=== PATIENT | female | born 1980 | race Caucasian/White ===

== ENCOUNTER 2016-07-28 05:15 | Day surgery (SDC) | payer OTHER ==
[2016-07-27 11:28] VITALS: BMI 33.5
[2016-07-28] MEDS ORDERED: ceFAZolin SODIUM 1 GM VIAL ONE (07:48)
[2016-07-28] MEDS ORDERED: SUCCINYLCHOLINE CHLORIDE 200 MG/10 ML VIAL ONE (08:59)
[2016-07-28] MEDS ORDERED: LIDOCAINE HCL/PF 2% SDV 5ML VIAL ONE (08:59)
[2016-07-28] MEDS ORDERED: ROCURONIUM BROMIDE 50 MG/5 ML VIAL ONE ×2 (08:59→11:09)
[2016-07-28] MEDS ORDERED: PROPOFOL 20 ML ONE (08:59)
--- NOTE | 2016-07-28 09:26 | HP ---
History & Physical Update - Physical Physical: No Change - Assessment Assessment: No Change - Plan Currently as noted:: Have discussed with Tracey possible BSO if endometriosis severe.
[2016-07-28] MEDS ORDERED: ceFAZolin 2 GRAM PREMIX BAG IVPB ONE (09:30)
[2016-07-28] MEDS ORDERED: MIDAZOLAM HCL 2 MG/2 ML SINGLE DOSE VIAL ONE (09:53)
[2016-07-28] MEDS ORDERED: DESFLURANE GAS 240 ML BOTTLE IH ONE (09:54)
[2016-07-28] MEDS ORDERED: ceFAZolin SODIUM 1 GM VIAL IVPB ONE (10:10)
[2016-07-28] MEDS ORDERED: DEXAMETHASONE SOD PHOSPHATE 4 MG/1 ML VIAL ONE ×2 (10:15→12:25)
[2016-07-28] MEDS ORDERED: LIDOCAINE 1%/EPI 1:100000 (50 ML MULTI DOSE VIAL) INF ONE (10:20)
[2016-07-28] MEDS ORDERED: METHYLENE BLUE 1% 10 MG/1 ML VIAL ONE (11:47)
[2016-07-28] MEDS ORDERED: HYDROmorphone HCL/PF 1 MG/ML VIAL (FOR PYXIS CHARGING ONLY) ONE (11:58)
[2016-07-28] MEDS ORDERED: NEOSTIGMINE METHYLSULFATE 0.5 MG/ML - 10 ML MDV ONE (12:26)
[2016-07-28] MEDS ORDERED: GLYCOPYRROLATE 0.2 MG/1 ML VIAL ONE (12:27)
[2016-07-28] MEDS ORDERED: METOCLOPRAMIDE HCL INJECTION 10 MG/2 ML VIAL IVPB PRN (13:51)
[2016-07-28] MEDS ORDERED: ONDANSETRON 4 MG/2 ML VIAL IVPB PRN (13:51)
[2016-07-28] MEDS ORDERED: HYDROmorphone HCL CARPU-JECT 1 MG/1 ML DISP.SYRIN IVPUSH PRN ×3 (13:51→16:58)
[2016-07-28] MEDS ORDERED: ACETAMINOPHEN 325 MG TABLET (FP) PO PRN (13:51)
[2016-07-28] MEDS ORDERED: KETOROLAC TROMETHAMINE 30 MG/1 ML VIAL IVPUSH SCH (14:00)
[2016-07-28] MEDS ORDERED: HYDROmorphone HCL CARPU-JECT 2 MG/1 ML DISP.SYRIN ONE (14:04)
--- NOTE | 2016-07-28 14:08 | OP ---
Operative Note - Note: Operative Date: 07/28/16 Pre-Operative Diagnosis: Bilateral endometriomas. Chronic pelvic pain. Menorrhagia Operation: Robotic total hysterectomy, bilateral salpingoophorectomy, endometrioma excision, enterolysis, cystoscopy Findings: 8 cm right ovarian cyst with chocolate fluid, thick wall, left ovarian 5 cm cyst with chocolate fluid, no normal ovaries or tubes seen. Uterus 10 week size c/w adenomyosis, rectum densely adherent to posterior uterus. Normal appendix and upper abdomen Implants: none Post-Operative Diagnosis: Same as Pre-op Surgeon: Sujey Young Divisional Merchandising Manager: Alvin Guerra Anesthesia: General, Local Specimens Removed: Uterus, cervix, bilateral tubes and ovaries Estimated Blood Loss (mls): 200 Drains & Tubes with Location: none Operative Report Dictated: Yes
[2016-07-28] MEDS: KETOROLAC TROMETHAMINE 30 MG/1 ML VIAL IVPB SCH ×2 (16:23→22:29)
[2016-07-28] MEDS ORDERED: HYDROmorphone HCL CARPU-JECT 1 MG/1 ML DISP.SYRIN IVPB PRN (20:29)
[2016-07-28] MEDS: LORazepam 0.5 MG TABLET PO PRN (20:37)
[2016-07-28] MEDS ORDERED: HYDROmorphone HCL CARPU-JECT 1 MG/1 ML DISP.SYRIN IVPB ONE (23:00)
[2016-07-28] MEDS: LACTATED RINGERS SOLUTION 1,000 ML IV SCH (23:55)
[2016-07-29] MEDS: HYDROmorphone HCL CARPU-JECT 2 MG/1 ML DISP.SYRIN IVPB PRN ×2 (01:55→06:02)
[2016-07-29] MEDS: LORazepam 0.5 MG TABLET PO PRN ×2 (01:58→15:29)
[2016-07-29] MEDS: KETOROLAC TROMETHAMINE 30 MG/1 ML VIAL IVPB SCH ×3 (04:36→17:39)
[2016-07-29 08:19] LABS: MCHC 34.1 g/dl (32.0-36.0); MEAN CELL VOLUME 82.1 fl (80-96); MEAN PLT VOLUME 9.1 fl (7.5-11.1); PLATELET COUNT 210 K/MM3 (134-434); WHITE BLOOD COUNT 6.6 K/mm3 (4.0-10.0)
[2016-07-29] MEDS: LACTATED RINGERS SOLUTION 1,000 ML IV SCH (08:23)
[2016-07-29 09:09] LABS: COCKROFT - GAULT 177.514; CREATININE 0.6 mg/dL (0.55-1.02)
--- NOTE | 2016-07-29 09:09 | PN ---
Progress Note (short form) - Note Progress Note: pod 1 doing well, has nausea, CBC, BMP 07/29/16 07:30 Last Vital Signs Temp Pulse Resp BP Pulse Ox 98 F 79 20 109/61 100 07/29/16 08:06 07/29/16 08:06 07/29/16 08:06 07/29/16 08:06 07/28/16 21:00 abdomen soft, no distension, no cva BS hypoactive, but present incisions dry, clean no vaginal bleeding, no calf tenderness plan ambulate , advance diet, if tolerate diet,d/c home with instruction
[2016-07-29] MEDS ORDERED: oxyCODONE HCL 5 MG TABLET PO PRN (10:05)
[2016-07-29 13:24] VITALS: BP 113/62; PULSE 85; TEMP 98.2
--- NOTE | 2016-07-30 12:23 | PATH ---
Surgical Pathology Report Patient Name: KENDRA VALADEZ [facility]. Rec. #: [id number] /Age/Gender: 1980 (Age: 36) / F Account: [id number] Location: AMBULATORY SURG Taken: 07/28/2016 Received: 07/28/2016 Reported: 07/30/2016 Physicians: Sujey Young MD Specimen(s) Received UTERUS, CERVIX, WITH BILATERAL FALLOPIAN TUBES AND OVARIES Clinical History Ovarian cysts Final Diagnosis UTERUS, CERVIX, BILATERAL FALLOPIAN TUBES AND OVARIES, ROBOTIC LAPAROSCOPIC TOTAL HYSTERECTOMY, BILATERAL SALPINGO-OOPHORECTOMY: CERVIX: CHRONIC CERVICITIS. ENDOMETRIUM: SECRETORY. MYOMETRIUM: LEIOMYOMATA (LARGEST 0.7 CM). UTERINE SEROSA: FIBROVASCULAR ADHESIONS. LEFT FALLOPIAN TUBE: ENDOMETRIOSIS, CHRONIC SALPINGITIS, DENSE FIBROVASCULAR AND FIBRINOHEMORRHAGIC TUBO-OVARIAN ADHESIONS. LEFT OVARY: ENDOMETRIOSIS, HEMORRHAGIC CORPUS LUTEUM, CYSTIC FOLLICLES, DENSE TUBO-OVARIAN ADHESIONS. RIGHT FALLOPIAN TUBE: ENDOMETRIOSIS, CHRONIC SALPINGITIS, DENSE FIBROVASCULAR AND FIBRINOHEMORRHAGIC TUBO-OVARIAN ADHESIONS. RIGHT OVARY: ENDOMETRIOMA/ENDOMETRIOTIC CYST, DENSE TUBO-OVARIAN ADHESIONS. Electronically Signed Maciel Paul M.D. Gross Description Received in formalin labeled "uterus, cervix, bilateral fallopian tubes and ovaries" is a 118 g uterus with an attached cervix and bilateral attached fallopian tubes and ovaries. The specimen measures 9 cm from superior to inferior, 5.5 cm from left to right and 5.0 cm from anterior to posterior. The serosa is denton-brown with adhesions. The attached cervix measures 3 cm in length and averages 2.8 cm in diameter. The ectocervix is denton, smooth and glistening. The endocervix is unremarkable. The endometrial cavity measures 4 cm in length and averages 3 cm from cornu to cornu. The endometrium is hyperemic and lush, measuring up to 0.4 cm in thickness. There are 2 small intramural nodules identified measuring 0.4 and 0.7 cm in greatest dimension. The remaining myometrium is denton-pink and averages 2 cm in thickness. The left fimbriated fallopian tube measures 4.3 cm in length. The outer surface is denton-quiros with dense tubo-ovarian adhesions. The attached left ovary measures 7.0 x 4.3 x 2.5 cm. The outer surface is brown with adhesions and multifocal defects. Sectioning reveals denton-brown, hemorrhagic, cystic parenchyma. The right adnexa display a 5.8 x 5.0 x 2.5 cm hemorrhagic mass, consistent with an ovary and fallopian tube. The specimen displays dense tubo-ovarian adhesions. No definitive fimbria is identified. A fallopian tube lumen is identified. The ovary appears hemorrhagic with multifocal defects. Sectioning reveals denton-brown, hemorrhagic cystic parenchyma. Computer Systems Auditor sections are submitted in 19 cassettes as follows: 1-anterior cervix; 2-posterior cervix; 8-6-cqyavekq endomyometrium; 4-1-xezkjyhyt endomyometrium; 7-intramural nodules; 8-left fallopian tube fimbria; 9-cross sections of left fallopian tube; 10-13-left ovary; 83-vjpzk-gghwecog of probable right fallopian tube; 15-19-right ovary. 07/29/2016 [facility]07/29/2016
--- NOTE | 2016-07-30 12:45 | PATH ---
Cytology Non-Gynecological Report Patient Name: KENDRA VALADEZ [facility]. Rec. #: [id number] /Age/Gender: 1980 (Age: 36) / F Account: [id number] Location: AMBULATORY SURG Taken: 07/28/2016 Received: 07/28/2016 Reported: 07/30/2016 Physicians: Sujey Young MD Specimen(s) Received PELVIC WASHINGS Clinical History Ovarian cysts Final Diagnosis PELVIC WASHINGS: NO MALIGNANT CELLS IDENTIFIED. Comment: Refer to [id number] for the surgical pathology results. Electronically Signed Maciel Paul M.D. Gross Description Received is 50 cc of clear fluid fresh. Four cytofunnel slides are made.
--- NOTE | 2016-08-11 14:35 | OP ---
DATE OF OPERATION: 07/28/2016 PREOPERATIVE DIAGNOSIS: Bilateral adnexal masses and history of endometriosis and chronic pelvic pain. POSTOPERATIVE DIAGNOSIS: Bilateral adnexal masses and history of endometriosis and chronic pelvic pain, bilateral endometriomas. PROCEDURE: Robotic-assisted total hysterectomy, bilateral salpingo-oophorectomy, extensive lysis of adhesions, cystoscopy. SURGEON: Sujey Young MD CO-SURGEON: Alvin Guerra MD ANESTHESIA: General endotracheal and local. ESTIMATED BLOOD LOSS: 200 mL. COMPLICATIONS: None. INDICATIONS: This is a patient with a history of severe, chronic pelvic pain. She was found on ultrasound to have bilateral adnexal masses. She had a history of endometriosis. The patient was counseled regarding surgical management. Risks, benefits, indications, and alternatives were discussed with the patient. All questions were answered. Informed consent was signed. FINDINGS: Cervix, no lesions. Uterus approximately 8 weeks' size. Upon laparoscopy, a large, approximately 10-cm thick, inflammatory mass was seen in the right adnexa adherent to the pelvic sidewall, and a left adnexa approximately 8 cm also adherent to the pelvic sidewall and posterior uterus. The rectosigmoid colon was densely adherent to the posterior uterus. The upper abdomen appeared normal. DESCRIPTION OF PROCEDURE: The patient was taken to the operating room and placed in the dorsal supine position. General endotracheal anesthesia was obtained without difficulty. She was placed in the dorsal lithotomy position in Issa stirrups and prepped and draped in a normal sterile fashion. Coto catheter was placed in the bladder. A speculum was placed in the vagina. The cervix was grasped with a single-tooth tenaculum. A qzqiyy-ve-ytqus stitch of 0 Vicryl was placed. The cervix was gently dilated, and a VCare uterine manipulator was then placed. The tenaculum and speculum were removed, and VCare was attached to the cervix with the suture. Attention was turned to the patient's abdomen. Then 5 mL of 1% lidocaine with epinephrine was injected into the umbilicus, and an 8-mm incision was made with a scalpel. While tenting the anterior abdominal wall, the Veress needle was inserted intra-abdominally. The 8-mm trocar was then placed, and intra-abdominal placement was confirmed by direct visualization with laparoscope. Additional 8-mm ports were placed in the right mid and left mid quadrants, and a 5-mm AirSeal port was placed in the left lower quadrant. All trocars were placed under direct visualization after injecting 1% lidocaine with epinephrine. A thorough exam of the abdomen and pelvis revealed the above noted findings. The Da Henry robot was then docked without difficulty. At this point, extensive lysis of adhesions was performed requiring approximately 1 hour of time to free the rectosigmoid colon from the posterior uterus and extensive lysis of adhesions to free the adnexa. At this point it was determined, however, a cystectomy could not be performed as there was no normal ovary visualized, and the masses appeared very thickened and inflammatory. Given the history of the patient's severe right lower quadrant pain, it was clear that a hysterectomy BSO would be the only certain procedure to eradicate the endometriosis entirely and prevent future endometriosis. The right retroperitoneum was opened. The right ureter was identified and dissected away from the infundibulopelvic ligament. The infundibulopelvic ligament was clamped, cauterized, and transected. This was carried through the broad ligament and the round ligament and the vesicouterine peritoneum anteriorly. The left retroperitoneum was opened. The left ureter was identified. Left infundibulopelvic ligament was clamped, cauterized, and transected. This was carried through the broad ligament and the vesicouterine peritoneum anteriorly. The bladder was dissected off the anterior cervix, and the uterine arteries bilaterally were skeletonized. They were cut, cauterized, and transected. The cardinal ligaments were serially clamped, cauterized, and transected. The uterosacral ligaments were clamped, cauterized, and transected. A vaginotomy incision was made circumferentially around the cervix. The uterus, cervix, ovaries, and tubes were passed through the vagina. There had been an egressive chocolate fluid bilaterally from each cyst, which was consistent with endometriosis. The vaginal cuff was closed in a running, continuous fashion using 2-0 Vicryl. The pelvis was thoroughly irrigated with saline. Excellent hemostasis was seen. For added assurance, Surgicel was placed in the retroperitoneum and the cuff. All instruments were removed from the patient's abdomen. The Da Henry robot was then undocked. A cystoscopy was performed. The Coto catheter was removed, and a 12-degree cystoscope was placed through the urethra. While instilling normal saline, the bladder was observed. Methylene blue had been injected intravenously, and bilateral ureteral jets were able to be seen well. There were no lesions in the bladder. The cystoscope was removed. The bladder was drained, and the Coto catheter was replaced. Again, we visualized the cuff, and it appeared dry. All instruments were removed from the patient's abdomen. All trocars were removed. Sponge, needle, and instrument counts were correct x2. Skin was closed with 4-0 Monocryl, and Dermabond was applied. The patient was extubated and transferred in stable condition to the PACU. Sujey Young M.D. [id number]
== END 2016-07-29 17:46 | disposition home or self-care (01) ==
LOC: JASU-SURG 05:15 → JASUSAT 05:15 → J3W 15:08 → JASUSAT 07-29 17:46
PROVIDERS: ATTEND Obstetrics & Gynecology Gynecologic Oncology
PROC: 0UT2FZZ Resection of Bilateral Ovaries, Via Natural or Artificial Opening With Percutaneous Endoscopic Assistance (ICD-10-PCS; 2016-07-28)
PROC: 0UT7FZZ Resection of Bilateral Fallopian Tubes, Via Natural or Artificial Opening With Percutaneous Endoscopic Assistance (ICD-10-PCS; 2016-07-28)
PROC: 8E0W4CZ Robotic Assisted Procedure of Trunk Region, Percutaneous Endoscopic Approach (ICD-10-PCS; 2016-07-28)
PROC: 0UN24ZZ Release Bilateral Ovaries, Percutaneous Endoscopic Approach (ICD-10-PCS; 2016-07-28)
PROC: 0UN74ZZ Release Bilateral Fallopian Tubes, Percutaneous Endoscopic Approach (ICD-10-PCS; 2016-07-28)
PROC: 0UT9FZZ Resection of Uterus, Via Natural or Artificial Opening With Percutaneous Endoscopic Assistance (ICD-10-PCS; principal; 2016-07-28 09:00)
PROC: 0UTC7ZZ Resection of Cervix, Via Natural or Artificial Opening (ICD-10-PCS; 2016-07-28 09:00)
DX: D25.9 Leiomyoma of uterus, unspecified (principal); N72 Inflammatory disease of cervix uteri; N80.2 Endometriosis of fallopian tube; N80.1 Endometriosis of ovary; N73.6 Female pelvic peritoneal adhesions (postinfective)
CPT/HCPCS: 58552; S2900; 36415; 80048; 84702; 85027; 86850; 86900; 86901; 88108; 88305-TC; 88307-TC; 94760